=== PATIENT | female | born 1960 | race Caucasian/White ===

== ENCOUNTER → 2017-08-16 15:42 | Outpatient (CLI) | payer BC, SELFPAY ==
--- NOTE | 2017-08-16 15:45 | DI.RAD.S_ITS ---
PROCEDURE: XR CHEST 2V INDICATIONS: sinusitis with chest congestion TECHNIQUE: 2 views of the chest were acquired. COMPARISON: None. FINDINGS: Surgical changes and devices: None. Lungs and pleura: No pleural effusions or pneumothorax. Lungs are clear. Mediastinum: Mediastinal contours are normal. Heart size is normal. Bones and chest wall: No suspicious bony abnormalities. Soft tissues appear unremarkable. IMPRESSION: Large lung volumes, COPD is suspected. No pneumonia found. Dictated by: Dickson Vinson M.D. on 08/16/2017 at 16:11 Approved by: Dickson Vinson M.D. on 08/16/2017 at 16:12
== END ==
PROVIDERS: Visit Provider Nurse Practitioner Family
DX: J32.9 Chronic sinusitis, unspecified (principal)
CPT/HCPCS: 71046

== ENCOUNTER → 2017-09-26 12:17 | Outpatient (CLI) | payer BC, SELFPAY ==
--- NOTE | 2017-09-26 | DI.MG.S_ITS ---
BILATERAL DIGITAL SCREENING MAMMOGRAM 3D/2D WITH CAD: 09/26/2017 CLINICAL: Routine screening. Comparison is made to exams dated: 08/18/2016 mammogram - [facility], 06/20/2014 mammogram, and 12/23/2008 mammogram - [facility]. The tissue of both breasts is heterogeneously dense. This may lower the sensitivity of mammography. Current study was also evaluated with a Computer Aided Detection (CAD) system. No significant masses, calcifications, or other findings are seen in either breast. There has been no significant interval change. IMPRESSION: NEGATIVE There is no mammographic evidence of malignancy. A 1 year screening mammogram is recommended. This exam was interpreted at Station ID: [id number]. NOTE: For mammograms, a report in lay terms will be sent to the patient. Approximately 15% of breast malignancies will not be visualized mammographically. In the management of a palpable breast mass, a negative mammogram must not discourage biopsy of a clinically suspicious lesion. Electronically Signed By: Rivera chin/lilia:09/26/2017 16:00:33 letter sent: Normal Exam ACR BI-RADS Category 1: Negative [id number]
== END ==
PROVIDERS: Family Provider Nurse Practitioner; PCP Nurse Practitioner; Visit Provider Physician Assistant
DX: Z12.31 Encounter for screening mammogram for malignant neoplasm of breast (principal)
CPT/HCPCS: 77063; 77067

== ENCOUNTER → 2018-03-27 17:00 | Outpatient (CLI) | payer BC, SELFPAY ==
--- NOTE | 2018-03-27 17:03 | DI.RAD.S_ITS ---
PROCEDURE: XR KNEE RT 1TO2V INDICATIONS: right knee injury TECHNIQUE: 2 views of the knee were acquired. COMPARISON: None. FINDINGS: Bones: There is appearance of irregular contour and depression of the lateral tibial plateau as well as what appears to be a overlapped fracture fragment. Portion of this is obscured by overlapping fibular head. There is ill-defined lucency overlying the tibial spine seen on the frontal view. Soft tissues: Joint effusion with hematoma is present. No suspicious soft tissue calcifications. IMPRESSION: 1. Joint effusion with hematoma. In addition, there is an appearance of depression of the lateral tibial plateau with partially obscured fragment. Overall appearance is most suggestive of lateral tibial plateau fracture. Fibular head fracture cannot be definitively excluded. 2. Lucency noted overlying the tibial spine suggestive of nondisplaced fracture. Dictated by: Dina Cooley M.D. on 03/27/2018 at 17:55 Approved by: Dina Cooley M.D. on 03/27/2018 at 18:01
== END ==
PROVIDERS: PCP Family Medicine; Visit Provider Physician Assistant
DX: S80.01XA Contusion of right knee, initial encounter (principal); M25.561 Pain in right knee; M25.461 Effusion, right knee
CPT/HCPCS: 73560

== ENCOUNTER → 2018-03-28 14:17 | Outpatient (CLI) | payer BC, SELFPAY ==
--- NOTE | 2018-03-28 14:23 | DI.CT.S_ITS ---
PROCEDURE: CT LE RT WO CON INDICATIONS: lateral tibial plateau fracture TECHNIQUE: Noncontrast 1-1.5 mm axial sections acquired from the mid-patella to the proximal tibia, with coronal and sagittal reformats. COMPARISON: None. FINDINGS: Image quality: Diagnostic. Bones: There is a mildly impacted intra-articular fracture identified involving the lateral tibial plateau with offset of the articular surface by up to approximately 5 mm. Subchondral sclerosis related to impaction of the fracture fragments is identified. No displaced fracture fragments are evident. This fracture does not extend into the tibial spines or the medial malleolus. No fractures involving the proximal fibula, distal femur, or patella are evident. Mild to moderate degenerative changes of the knee are present. There is a prominent lipohemarthrosis evident. A large intra-articular calcified or joint body is identified along the posterior margin of the knee, which measures up to approximately 1.3 x 0.8 x 1.2 cm (image 95, series 6 image 114, series 4). Soft tissues: Soft tissue edema about the knee is identified, particularly overlying the lateral aspect of the knee. No soft tissue masses or drainable fluid collections are evident. No significant atrophy involving the imaged muscles about the knee are present. Please note that the cartilaginous, ligamentous, tendinous structures of the knee are not adequately evaluated on CT. IMPRESSION: 1. Mildly comminuted fracture involving the lateral malleolus with associated depression (Schatzker 3A). 2. Mild to moderate degenerative changes of the right knee. 3. Large lipohemarthrosis containing a chronic appearing peripherally calcified intra-articular joint body. Dictated by: Barrett Villela M.D. on 03/28/2018 at 14:03 Approved by: Barrett Villela M.D. on 03/28/2018 at 14:12
== END ==
PROVIDERS: PCP Family Medicine; Visit Provider Physician Assistant
DX: S82.141A Displaced bicondylar fracture of right tibia, initial encounter for closed fracture (principal)
CPT/HCPCS: 73700

== ENCOUNTER → 2018-05-25 14:59 | Outpatient (CLI) | payer BC, SELFPAY ==
--- NOTE | 2018-05-25 | DI.US.S_ITS ---
PROCEDURE: US PERIPH VENOUS LOW EXTREM RT INDICATIONS: RIGHT LOWER EXTREMITY SWELLING TECHNIQUE: Real-time imaging, as well as color and pulse Doppler interrogation, were performed of the lower extremity deep veins from the inguinal ligament to the popliteal fossa. COMPARISON: None. FINDINGS: The deep veins are normally compressible, and free of intraluminal thrombus. Color and pulse Doppler demonstrate normal phasic intraluminal flow. There is normal augmentation response to distal compression maneuver. IMPRESSION: No visualized deep venous thrombosis. Dictated by: Dina Cooley M.D. on 05/25/2018 at 16:20 Approved by: Dina Cooley M.D. on 05/25/2018 at 16:21
== END ==
PROVIDERS: PCP Family Medicine; Visit Provider Orthopaedic Surgery
DX: R22.41 Localized swelling, mass and lump, right lower limb (principal)
CPT/HCPCS: 93971

== ENCOUNTER 2018-06-25 13:24 | Emergency (ER) | payer BC, SELFPAY ==
[2018-06-25 13:30] VITALS: BP 119/72; PULSE 77; RESP 18; TEMP 36.6; O2SAT 99
--- NOTE | 2018-06-25 13:52 | PC.NURSE ---
reports 10 weeks post right knee surgery, pt states, it has been discolored (from the knee down) since, had u/s 5 weeks ago, pt was on lovenox , dc due to gi bleed. now pt with bruising right foot by the arch. full rom , +distal cms intact. arrived right lower leg discoloration noted (red, non blanching) cool to touch. denies cp.sob.
--- NOTE | 2018-06-25 13:55 | DI.US.S_ITS ---
PROCEDURE: US PERIP VENOUS LOW EXTREM RT INDICATIONS: SWELLING ON BOTTOM OF FOOT, 10 WEEKS POST OPERATIVE TECHNIQUE: Real-time imaging, as well as color and pulse Doppler interrogation, were performed of the lower extremity deep veins from the inguinal ligament to the popliteal fossa. COMPARISON: [facility], US, US [facility] VENOUS LOW EXTREM RT, 05/25/2018, 15:35. FINDINGS: The common femoral, femoral and popliteal veins are normally compressible, and free of intraluminal thrombus. Color and pulse Doppler demonstrate intraluminal flow. There is normal augmentation response to distal compression maneuver. There are multiple hypodense foci within the plantar surface of the right foot, with the largest measuring 1.2 x 0.3 x 0.5 cm in the subcutaneous soft tissues on the plantar surface of the right foot at the area of the patient's indicated concern/palpable abnormality, with symmetrical vascularity on Doppler ultrasound. IMPRESSION: 1. No ultrasound evidence of deep venous thrombosis of the right lower extremity. 2. Multiple hypoattenuating foci within the plantar subcutaneous tissues of the right foot measuring up to 1.2 cm in size may represent small fluid collections/hematomas, cysts, or masses; an abscess is thought unlikely given lack of surrounding vascularity on Doppler ultrasound. Dictated by: Matteo Shipley M.D. on 06/25/2018 at 16:55 Approved by: Matteo Shipley M.D. on 06/25/2018 at 16:59
--- NOTE | 2018-06-25 14:06 | ED_ITS ---
HPI - Extremity Problem <NOLAN Traylor - Last Filed: 06/25/18 20:48> General Chief complaint: Extremity Problem,Nontraumatic Stated complaint: Lump on bottom of rt foot Time Seen by Provider: 06/25/18 13:42 Source: patient and family Mode of arrival: ambulatory Limitations: no limitations History of Present Illness HPI Narrative: The patient is a 58-year-old female who presents with a chief complaint of right lower leg and foot pain. she had a right tibial plateau fracture and subsequent ORIF on 04/14/2018. She presents with a chief complaint of right lower leg discoloration, pain and bumps on the bottom of her right foot. She states that her lower leg have been discolored since surgery, but she feels as though it is worsening. She was on Lovenox for 3 weeks after surgery, but then had a ?small GI bleed so she was taken off any blood thinners. She is worried about a blood clot in her right lower leg. She had a ultrasound done 4 weeks ago for DVT, which was negative. she did have follow-up with Orthopedics at [facility] on , and was seen by the ?head surgeon who ?had no idea why my leg is discolored. She states she had normal x-rays at that time. She does present requesting an MRI of her leg. Related Data Previous Rx's Medication Instructions Recorded alprazolam 0.25 mg tablet See Rx Instructions PO ONCE PRN #4 11/01/17 tab wheelchair #1 each 03/27/18 Allergies Allergy/AdvReac Type Severity Reaction Status Date / Time latex [LATEX] Allergy Unknown Verified 06/26/18 15:27 Penicillins [PENICILLINS] Allergy Unknown Verified 06/26/18 15:27 Tetracyclines [TETRACYCLINES] Allergy Unknown Verified 06/26/18 15:27 erythromycin base AdvReac Mild Verified 06/26/18 15:27 Review of Systems <NOLAN Traylor - Last Filed: 06/25/18 20:48> Review of Systems GENERAL: Denies chills, fatigue, malaise, fever, sweats. HEENT: Denies sinus pain, ear pain, sore throat, difficulty swallowing, dizziness. RESPIRATORY: Denies dyspnea, cough, wheezing, hemoptysis, sputum. CARDIOVASCULAR: Denies chest pain, palpitations, orthopnea, edema, GASTROINTESTINAL: Denies nausea, vomiting, abdominal pain, diarrhea, constipation, melena. : Denies dysuria, frequency, incontinence, hematuria, urinary retention. MUSCULOSKELETAL: See HPI SKIN: See HPI NEUROLOGIC: Denies weakness, headache, numbness, change in speech, confusion, seizures, incoordination. PSYCHIATRIC: No concerning psychosocial issues. 12 point review of systems is negative except for those stated above PFSH <NOLAN Traylor - Last Filed: 06/25/18 20:48> Medical History (Updated 06/25/18 @ 16:47 by NOLAN Traylor) Anxiety (Chronic) Gastrointestinal complaints (Chronic) IBS (irritable bowel syndrome) (Chronic) Shoulder pain (Chronic) Chicken pox (Resolved 1965) Measles (Resolved 1964) Surgical History (Updated 09/26/17 @ 14:12 by Kasey Abbott) Anesthesia (Resolved) History of tonsillectomy (Resolved) Status post dilation and curettage (Resolved 2012) Status post laparoscopy (Resolved 1987) Family History (Updated 09/26/17 @ 14:15 by Kasey Abbott) Father CAD (coronary artery disease) S/P CABG x 5 NH (myocardial infarction) Kidney failure Grandfather CAD (coronary artery disease) NH (myocardial infarction) Grandmother Dementia Mother Age: 86 A-fib Pacemaker Sister Age: 53 Lymphoma Social History Smoking Status: Never smoker Family History (Updated 09/26/17 @ 14:15 by Kasey Abbott) Father CAD (coronary artery disease) S/P CABG x 5 NH (myocardial infarction) Kidney failure Grandfather CAD (coronary artery disease) NH (myocardial infarction) Grandmother Dementia Mother Age: 86 A-fib Pacemaker Sister Age: 53 Lymphoma Social History Smoking Status: Never smoker Exam <NOLAN Traylor - Last Filed: 06/25/18 20:48> Narrative Exam Narrative: GENERAL: This is a well-nourished, well-developed patient, in no acute distress with at bedside HEAD: Atraumatic. Normocephalic. No temporal or scalp tenderness. EYES: Pupils equal round and reactive. Extraocular motions intact. No scleral icterus. No injection or drainage. ENT: Nose without bleeding, purulent drainage or septal hematoma. Throat without erythema, tonsillar hypertrophy or exudate. Uvula midline. Airway patent. NECK: Trachea midline. No JVD or lymphadenopathy. Supple, nontender, no meningeal signs. CARDIOVASCULAR: Regular rate and rhythm without murmurs, gallops, or rubs. RESPIRATORY: Clear to auscultation. Breath sounds equal bilaterally. No wheezes, rales, or rhonchi. No cough. No increased respiratory effort. GASTROINTESTINAL: Abdomen soft, non-tender, nondistended. No hepato- splenomegaly, or palpable masses. No guarding. EXTREMITIES: General pain to palpation left lower leg. Calf is soft to palpation. Positive pedal pulses. no significant edema noted. BACK: Nontender without deformity or crepitance. No flank tenderness. NEURO: AOx3. SKIN: Diffuse skin darkening distal aspect right lower leg. Well-healing knee surgical incision on the right side. No obvious erythema. Two areas of ecchymosis noted on the distal aspect of right foot. Skin is intact. pain to palpation noted. Initial Vital Signs Initial Vital Signs: Vital Signs Temperature 97.8 F 06/25/18 13:30 Pulse Rate 77 06/25/18 13:30 Respiratory Rate 18 06/25/18 13:30 Blood Pressure 119/72 06/25/18 13:30 Pulse Oximetry 99 06/25/18 13:30 <Sterling Merchant DO - Last Filed: 06/27/18 04:50> Initial Vital Signs Initial Vital Signs: Vital Signs Temperature 97.8 F 06/25/18 13:30 Pulse Rate 77 06/25/18 13:30 Respiratory Rate 18 06/25/18 13:30 Blood Pressure 119/72 06/25/18 13:30 Pulse Oximetry 99 06/25/18 13:30 Course <NOLAN Traylor - Last Filed: 06/25/18 20:48> Orders Ordered: ED Orders 06/25/18 13:55 perip venous low extrem rt Stat Vital Signs - 8 hr 06/25/18 13:30 06/25/18 17:13 Temperature 97.8 F Pulse Rate 77 62 Respiratory Rate 18 16 Blood Pressure 119/72 107/77 Pulse Oximetry 99 99 <DO Bernice Collins Last Filed: 06/27/18 04:50> Orders Ordered: ED Orders 06/25/18 13:55 US perip venous low extrem rt Stat Vital Signs - 8 hr 06/25/18 13:30 06/25/18 17:13 Temperature 97.8 F Pulse Rate 77 62 Respiratory Rate 18 16 Blood Pressure 119/72 107/77 Pulse Oximetry 99 99 MDM - Extremity (Nontraumatic) <NOLAN Traylor - Last Filed: 06/25/18 20:48> Imaging Data Venous US: Attestation: I personally reviewed and interpreted this imaging study as follows: Radiologist's impression: [address] [address] Ultrasound Report Signed Patient: Araceli Epstein RMR#: [id number] : 9Acct:[id number] Age/Sex: 58 / FDate of Service: 06/25/18 Loc: Accession Number: [id number] Procedure: US periph venous low extrem rt Ordering Provider: Leatha Jang PROCEDURE: US PERIPH VENOUS LOW EXTREM RT INDICATIONS: SWELLING ON BOTTOM OF FOOT, 10 WEEKS POST OPERATIVE TECHNIQUE: Real-time imaging, as well as color and pulse Doppler interrogation, were performed of the lower extremity deep veins from the inguinal ligament to the popliteal fossa. COMPARISON: [facility], PERIP VENOUS LOW EXTREM RT, 05/25/2018, 15:35. FINDINGS: The common femoral, femoral and popliteal veins are normally compressible, and free of intraluminal thrombus. Color and pulse Doppler demonstrate intraluminal flow. There is normal augmentation response to distal compression maneuver. There are multiple hypodense foci within the plantar surface of the right foot, with the largest measuring 1.2 x 0.3 x 0.5 cm in the subcutaneous soft tissues on the plantar surface of the right foot at the area of the patient's indicated concern/palpable abnormality, with symmetrical vascularity on Doppler ultrasound. IMPRESSION: 1. No ultrasound evidence of deep venous thrombosis of the right lower extremity. 2. Multiple hypoattenuating foci within the plantar subcutaneous tissues of the right foot measuring up to 1.2 cm in size may represent small fluid collections/hematomas, cysts, or masses; an abscess is thought unlikely given lack of surrounding vascularity on Doppler ultrasound. Dictated by: Matteo Shipley M.D. on 06/25/2018 at 16:55 Approved by: Matteo Shipley M.D. on 06/25/2018 at 16:59 [facility] Narrative Medical decision making narrative: The patient is a 58-year-old female who presents with concern of DVT. She is 10 weeks postoperative of an ORIF of a right tibial plateau fracture done at [facility] orthopedics. She had a negative DVT ultrasound done 4 weeks ago. She states that she was taken off of her DVT prophylaxis due to ?a small GI bleed. She is also concerned about skin changes that have occurred since her surgery 10 weeks ago. She was hemodynamically stable, had positive pedal pulses on exam. She is neurovascularly intact on exam. However given her lack of DVT prophylaxis at this point time, I have elected to obtain an ultrasound to rule out DVT. The p atient elected to leave prior to ultrasound results given the wait for Radiology read, but her report came back with no significant findings. I did discuss with her that she had to follow up with her primary care provider as well as with her [facility] orthopedist. Return precautions given including chest pain, shortness of breath or acute concerns. Discharge Plan Departure Patient Disposition: Home Clinical Impression: Pain in right lower leg Discharge Date/Time: 06/25/18 17:13 Interventions: ED Discharge Assessment Last Done: 06/25/18 17:13 Instructions: How To Perform RICE (Rest, Ice, Compress, Elevate), DI for Leg Pain Activity Restrictions/Additional Instructions: I am sorry that it took so long to get ultrasound results today. I will give you a phone call if anything is abnormal on your ultrasound of your lower leg. The it telecom technician did not see any clots and thought there was bruising on the bottom of her foot. However I do not have the radiologist read at this point in time, so you are taking her risk by leaving without the read. Please follow up with her primary care provider as well as orthopedic surgeon at [facility]. In the meantime please use rest ice compression elevation. Come back to the emergency department if you have any acute concerns such as chest pain or shortness of breath. Prescriptions: No Action wheelchair device .ROUTE .MEDSUPPLY Qty: 1 RF: 0 alprazolam 0.25 mg tablet See Rx Instructions PO ONCE PRN (Reason: anxiety) Qty: 4 RF: 0 Referrals: Areli Acosta MD [Primary Care Provider] - <Sterling [place], DO - Last Filed: 06/27/18 04:50> Cosign ED Attending Nael Attestation: I was immediately available in the department for consultation. Documentation has been reviewed. I agree with assessment and plan.
--- NOTE | 2018-06-25 14:33 | PC.NURSE ---
pt reports just seen Orthopedic 2 days ago, here today, concern for redness spreading upward to her knees, usually here lower leg discoloration, gets improvement after elevation, this time its not getting better, also noted some bruinsing on her foot.
[2018-06-25 17:13] VITALS: BP 107/77; PULSE 62; RESP 16; O2SAT 99
== END 2018-06-25 17:13 | disposition home or self-care (01) ==
PROVIDERS: Emergency Provider Nurse Practitioner Family; PCP Family Medicine
DX: M79.661 Pain in right lower leg (principal); M79.671 Pain in right foot
CPT/HCPCS: 93971; 99283

== ENCOUNTER 2018-06-28 10:45 | Emergency (ER) | payer BC, SELFPAY ==
[2018-06-28 10:57] VITALS: BP 116/70; PULSE 74; RESP 18; TEMP 36.7; O2SAT 99
--- NOTE | 2018-06-28 11:25 | ED_ITS ---
HPI - Extremity Injury (Lower) General Chief Complaint: Extremity Injury, Lower Stated Complaint: circulatory problems following surgery 11 wks ago Time Seen by Provider: 06/28/18 11:12 Source: patient Mode of arrival: wheelchair Limitations: no limitations History of Present Illness HPI Narrative: Patient is a 58-year-old female who 11 weeks ago underwent a tibial plateau fracture at [facility]. Was seen here in the emergency department in the past secondary to redness in the right lower extremity. Had a DVT ultrasound which was unremarkable. Patient was seen by her primary provider yesterday for continued concerns of redness and coolness to the right lower extremity. It appears according to that note a arterial ultrasound was ordered to evaluate for a arterial issue however this was ordered as an outpatient. The patient arrives today because she states she received a call from the primary provider told her to come to the emergency department. She states that she is having coolness to her right lower extremity. Has redness to right lower extremity with this is not new. Has a bump on the bottom of her right foot. Has just recently started weight-bearing per the instructions of her orthopedic surgeon. Did not receive physical therapy today because physical therapist was concerned about the look of her lower extremity. Related Data Previous Rx's Medication Instructions Recorded alprazolam 0.25 mg tablet See Rx Instructions PO ONCE PRN #4 11/01/17 tab wheelchair #1 each 03/27/18 Allergies Allergy/AdvReac Type Severity Reaction Status Date / Time latex [LATEX] Allergy Unknown Verified 06/26/18 15:27 Penicillins [PENICILLINS] Allergy Unknown Verified 06/26/18 15:27 Tetracyclines [TETRACYCLINES] Allergy Unknown Verified 06/26/18 15:27 erythromycin base AdvReac Mild Verified 06/26/18 15:27 Review of Systems Constitutional Denies headache(s) ENT Ears, Nose, Mouth, and Throat: Denies headache(s) Cardiovascular Denies chest pain and Denies dyspnea Respiratory Denies dyspnea Gastrointestinal Gastrointestinal: Denies abdominal pain, Denies nausea and Denies vomiting Musculoskeletal Comments: Tingling right lower extremity Integumentary/Breasts Comments: Redness right lower extremity Neurologic Denies headache(s) Hematologic/Lymphatic Denies easy bleeding and Denies easy bruising Allergic/Immunologic Denies urticaria [facility] Medical History Anxiety (Chronic) Gastrointestinal complaints (Chronic) IBS (irritable bowel syndrome) (Chronic) Shoulder pain (Chronic) Chicken pox (Resolved 1965) Measles (Resolved 1964) Surgical History (Updated 09/26/17 @ 14:12 by Kasey Abbott) Anesthesia (Resolved) History of tonsillectomy (Resolved) Status post dilation and curettage (Resolved 2012) Status post laparoscopy (Resolved 1987) Family History (Updated 09/26/17 @ 14:15 by Kasey Abbott) Father CAD (coronary artery disease) S/P CABG x 5 [place] (myocardial infarction) Kidney failure Grandfather CAD (coronary artery disease) GA (myocardial infarction) Grandmother Dementia Mother Age: 86 A-fib Pacemaker Sister Age: 53 Lymphoma Social History Smoking Status: Never smoker Family History (Updated 09/26/17 @ 14:15 by Kasey Abbott) Father CAD (coronary artery disease) S/P CABG x 5 [place] (myocardial infarction) Kidney failure Grandfather CAD (coronary artery disease) GA (myocardial infarction) Grandmother Dementia Mother Age: 86 A-fib Pacemaker Sister Age: 53 Lymph[place] Social History Smoking Status: Never smoker Exam Initial Vital Signs Initial Vital Signs: Vital Signs Temperature 98.0 F 06/28/18 10:57 Pulse Rate 74 06/28/18 10:57 Respiratory Rate 18 06/28/18 10:57 Blood Pressure 116/70 06/28/18 10:57 Pulse Oximetry 99 06/28/18 10:57 Const General: cooperative, healthy appearing, comfortable, well developed, well groomed and No acute distress Orientation: alert, awake and oriented x3 Resp Effort & Inspection: normal respiratory effort Auscultation: clear to auscultation bilaterally Cardio Rate: regular rate Rhythm: regular rhythm Pulses: dorsalis pedis present (DP pulse present on the right however faint) on the right Skin Other: Nonblanching redness from mid tibia down to the ankle right lower extremity located mostly in the anterior area. No vesicles. Neuro Cognition: normal cognition Sensory Exam: other (Some tingling to the right lower extremity which is not new) Extrem Other: Well-healing scars to the right knee full range of motion of the right knee and right ankle. Psych Appearance: grossly normal and well kempt Course Orders Ordered: ED Orders 06/28/18 11:55 Basic Metabolic Panel Stat Complete Blood Count AUTO DIFF Stat 06/28/18 12:34 CT angio abd aorta runoff Stat Discontinued Medications Sodium Chloride (Normal Saline 0.9%) 1,000 mls @ 1,000 mls/hr IV BOLUS ONE Stop: 06/28/18 12:38 Last Infusion: 06/28/18 14:00 Dose: 0 mls/hr Admin: 06/28/18 12:40 Dose: 1,000 mls/hr Vital Signs - 8 hr 06/28/18 10:57 06/28/18 14:01 Temperature 98.0 F Pulse Rate 74 63 Respiratory Rate 18 Blood Pressure 116/70 102/65 Pulse Oximetry 99 100 MDM - Extremity Injury (Lower) Lab Data Attestation: I reviewed the patient's lab results. Result diagrams: 06/28/18 11:55 06/28/18 11:55 Lab Results 06/28/18 06/28/18 Range/Units 11:55 11:55 WBC 5.4 (4.5-11.0) X10^3/uL RBC 4.59 (4.0-5.2) X10^6/uL Hgb 13.9 (12.0-16.0) g/dL Hct 41.4 (36-46) % MCV 90.4 (80-100) fL MCH 30.3 (26-34) PG MCHC 33.6 (30-36) % RDW 12.6 (11.6-14.8) % Plt Count 378 (150-400) X10^3/uL Neut % (Auto) 50.3 (50-75) % Lymph % (Auto) 39.3 (25-40) % [place] % (Auto) 8.2 (3-14) % Eos % (Auto) 1.2 L (2-4) % Baso % (Auto) 1.0 (0-2) % Neut # (Auto) 2700 (2438-5152) /uL Lymph # (Auto) 2100 (6656-9249) /uL [place] # (Auto) 400 (0-900) /uL Eos # (Auto) 100 (0-450) /uL Baso # (Auto) 100 (0-100) /uL Sodium 139 (137-145) mmol/L Potassium 3.8 (3.4-5.1) mmol/L Chloride 99 (98-107) mmol/L Carbon Dioxide 29 (22-32) mmol/L BUN 13 (7-17) mg/dL Creatinine 0.60 (0.52-1.04) mg/dL Estimated GFR > 60.0 (>60) mL/min BUN/Creatinine Ratio 21.7 (6-22) Glucose 96 (70-100) mg/dL Calcium 9.5 (8.4-10.2) mg/dL Imaging Data CT angio: Radiologist's impression: [address] [address] [address] Scan Report Signed Patient: Araceli Epstein RMR#: [id number] : 9Acct:[id number] Age/Sex: 58 / FDate of Service: 06/28/18 Loc: ED Accession Number: [id number] Procedure: CT angio abd aorta runoff Ordering Provider: Mynor Flores D.O. PROCEDURE: CT ANGIO ABD AORTA RUNOFF INDICATIONS: Right lower extremity redness and coolness after surgery TECHNIQUE: After the administration of intravenous contrast, 2.5 mm sections acquired from T12 to the feet, with optional delayed image acquisition from the knees to the feet. 3-dimensional maximum intensity projection (MIP) coronal and sagittal reformats, and/or 3-dimensional volume rendering reformatting was then performed. For radiation dose reduction, the following was used: automated exposure control. COMPARISON: None. FINDINGS: Image quality: Excellent. Extravascular tissues: Lung bases are clear. Heart size is normal. Liver is normal in size and enhancement. Gallbladder normal. Biliary system is non dilated. Pancreas enhances normally. Spleen is normal in size and enhancement. No adrenal nodules. Kidneys are normal in size and enhancement, without hydronephrosis. Non opacified bowel loops demonstrate normal wall thickness and enhancement. No free fluid or air. No retroperitoneal or mesenteric adenopathy. No ventral hernias. Bladder wall thickness is normal. No inguinal hernias or adenopathy. No suspicious bony lesions. No vertebral body compression fractures. Abdominal aorta: Normal Right lower extremity: Normal vascular flow, metal artifact from tibial plateau fracture fixation on the right. Left lower extremity: Normal IMPRESSION: Normal. Dictated by: Dickson Vinson M.D. on 06/28/2018 at 13:04 [facility] Narrative Medical decision making narrative: The redness in her right lower extremity is not new. Her right lower extremity is cool compared to the left however the CT angio of her right lower extremity shows no arterial deficiencies. She has had a DVT ultrasound in the past which was negative. Her exam is not consistent with a DVT. Informed her that her symptoms could potentially be the result of neurologic changes after the surgery verses complex regional pain syndrome. Informed her that she had no restrictions on physical therapy except those which were given by her orthopedic surgeon. Informed her to call her orthopedic surgeon for follow-up. Patient expressed understanding and agreement with plan. Discharge Plan Departure Patient Disposition: Home Clinical Impression: Post-operative complication Qualifiers: Surgical complication system/body Area: [id number] Encounter type: initial encounter Discharge Date/Time: 06/28/18 14:02 Interventions: ED Discharge Assessment Last Done: 06/28/18 14:01 Activity Restrictions/Additional Instructions: The CT scan today showed no vascular issues in her right lower extremity. You are free to continue with any instructions that her orthopedic provider gives you with regard to recovery of your knee injury. contact her orthopedic provider for follow-up. Return to the emergency department for any new or worsening symptoms Prescriptions: No Action wheelchair device .ROUTE .MEDSUPPLY Qty: 1 RF: 0 alprazolam 0.25 mg tablet See Rx Instructions PO ONCE PRN (Reason: anxiety) Qty: 4 RF: 0 Referrals: Ginette Swift ARNP [Primary Care Provider] -
[2018-06-28 12:04] LABS: Add Manual Diff / Slide Review NO; Basophils Absolute Auto 100 /uL (0-100); Eosinophils Absolute Auto 100 /uL (0-450); Eosinophils Percent Auto 1.2 % (2-4); Hematocrit 41.4 % (36-46); Hemoglobin 13.9 g/dL (12.0-16.0); Lymphocytes Absolute Auto 2100 /uL (1100-4500); Lymphocytes Percent Auto 39.3 % (25-40); Mean Corpuscular HGB Conc 33.6 % (30-36); Mean Corpuscular Hemoglobin 30.3 PG (26-34); Mean Corpuscular Volume 90.4 fL (80-100); Monocytes Absolute Auto 400 /uL (0-900); Monocytes Percent Auto 8.2 % (3-14); Neutrophils Absolute Auto 2700 /uL (1500-7000); Neutrophils Percent Auto 50.3 % (50-75); Platelet Count 378 X10^3/uL (150-400); Red Blood Cell Count 4.59 X10^6/uL (4.0-5.2); Red Cell Distribution Width 12.6 % (11.6-14.8); White Blood Cell Count 5.4 X10^3/uL (4.5-11.0)
[2018-06-28 12:14] LABS: BUN Creatinine Ratio 21.7 (6-22); Blood Urea Nitrogen 13 mg/dL (7-17); Calcium 9.5 mg/dL (8.4-10.2); Carbon Dioxide 29 mmol/L (22-32); Chloride 99 mmol/L (98-107); Estimated Glomerular Filt Rate > 60.0 mL/min (>60); Glucose 96 mg/dL (70-100); HEMOLYSIS < 15 (0-50); Potassium 3.8 mmol/L (3.4-5.1); Sodium 139 mmol/L (137-145)
--- NOTE | 2018-06-28 12:14 | PC.NURSE ---
Able to get pedal pulse with doppler. pulse is heard but fades and then comes back.
--- NOTE | 2018-06-28 12:34 | DI.CT.S_ITS ---
PROCEDURE: CT ANGIO ABD AORTA RUNOFF INDICATIONS: Right lower extremity redness and coolness after surgery TECHNIQUE: After the administration of intravenous contrast, 2.5 mm sections acquired from T12 to the feet, with optional delayed image acquisition from the knees to the feet. 3-dimensional maximum intensity projection (MIP) coronal and sagittal reformats, and/or 3-dimensional volume rendering reformatting was then performed. For radiation dose reduction, the following was used: automated exposure control. COMPARISON: None. FINDINGS: Image quality: Excellent. Extravascular tissues: Lung bases are clear. Heart size is normal. Liver is normal in size and enhancement. Gallbladder normal. Biliary system is non dilated. Pancreas enhances normally. Spleen is normal in size and enhancement. No adrenal nodules. Kidneys are normal in size and enhancement, without hydronephrosis. Non opacified bowel loops demonstrate normal wall thickness and enhancement. No free fluid or air. No retroperitoneal or mesenteric adenopathy. No ventral hernias. Bladder wall thickness is normal. No inguinal hernias or adenopathy. No suspicious bony lesions. No vertebral body compression fractures. Abdominal aorta: Normal Right lower extremity: Normal vascular flow, metal artifact from tibial plateau fracture fixation on the right. Left lower extremity: Normal IMPRESSION: Normal. Dictated by: Dickson Vinson M.D. on 06/28/2018 at 13:04 Approved by: Dickson Vinson M.D. on 06/28/2018 at 13:06
[2018-06-28] MEDS: SODIUM CHLORIDE 0.9% 1,000 ML 1000 ML IV (12:40)
[2018-06-28 14:01] VITALS: BP 102/65; PULSE 63; O2SAT 100
== END 2018-06-28 14:02 | disposition home or self-care (01) ==
PROVIDERS: Emergency Provider Emergency Medicine; PCP Registered Nurse
DX: T81.9XXA Unspecified complication of procedure, initial encounter (principal)
CPT/HCPCS: 36591; 75635; 80048; 85025; 96360; 99283; 99284; Q9967

== ENCOUNTER → 2018-09-20 11:57 | Outpatient (CLI) | payer BC, SELFPAY ==
[2018-09-20 13:56] LABS: TSH w/ Reflex to FT4 1.61 uIU/mL (0.47-4.68)
[2018-09-20 14:15] LABS: Vitamin B12 203 pg/mL (239-931)
== END ==
PROVIDERS: PCP Family Medicine; Visit Provider Registered Nurse
DX: R41.89 Other symptoms and signs involving cognitive functions and awareness (principal)
CPT/HCPCS: 36415; 82607; 84443

== ENCOUNTER → 2018-11-27 11:40 | Outpatient (CLI) | payer BC, SELFPAY ==
--- NOTE | 2018-11-27 | DI.MG.S_ITS ---
BILATERAL DIGITAL SCREENING MAMMOGRAM 3D/2D WITH CAD: 11/27/2018 Comparison is made to exams dated: 09/26/2017 mammogram, 08/18/2016 mammogram - [facility], 06/20/2014 mammogram, 12/23/2008 mammogram, and 09/18/2007 mammogram - [facility]. The tissue of both breasts is heterogeneously dense. This may lower the sensitivity of mammography. Current study was also evaluated with a Computer Aided Detection (CAD) system. No significant masses, calcifications, or other findings are seen in either breast. There has been no significant interval change. IMPRESSION: NEGATIVE There is no mammographic evidence of malignancy. A 1 year screening mammogram is recommended. This exam was interpreted at Station ID: [id number]. NOTE: For mammograms, a report in lay terms will be sent to the patient. Approximately 15% of breast malignancies will not be visualized mammographically. In the management of a palpable breast mass, a negative mammogram must not discourage biopsy of a clinically suspicious lesion. Electronically Signed By: Markell aguilera/lilia:11/27/2018 12:48:14 letter sent: Normal Exam ACR BI-RADS Category 1: Negative 3341F
== END ==
PROVIDERS: PCP Registered Nurse; Visit Provider Registered Nurse
DX: Z12.31 Encounter for screening mammogram for malignant neoplasm of breast (principal)
CPT/HCPCS: 77063; 77067

== ENCOUNTER → 2020-02-22 12:16 | Outpatient (CLI) | payer BC, SELFPAY | PROVIDERS: PCP Family Medicine; Referring Provider Family Medicine; Visit Provider Family Medicine | DX: Z12.31 Encounter for screening mammogram for malignant neoplasm of breast (principal); Z53.9 Procedure and treatment not carried out, unspecified reason; R63.5 Abnormal weight gain; R53.83 Other fatigue; Z72.820 Sleep deprivation ==

== ENCOUNTER → 2020-03-03 15:56 | Outpatient (CLI) | payer BC, SELFPAY ==
--- NOTE | 2020-03-03 16:01 | DI.MG.S_ITS ---
BILATERAL DIGITAL SCREENING MAMMOGRAM 3D/2D WITH CAD: 03/03/2020 CLINICAL: Routine screening. Comparison is made to exams dated: 11/27/2018 mammogram, 08/18/2016 mammogram, and 09/26/2017 mammogram - [facility]. The tissue of both breasts is heterogeneously dense. This may lower the sensitivity of mammography. Current study was also evaluated with a Computer Aided Detection (CAD) system. There is a stable benign focal asymmetry in the left breast. No significant masses, calcifications, or other findings are seen in either breast. There has been no significant interval change. IMPRESSION: BENIGN There is no mammographic evidence of malignancy. A 1 year screening mammogram is recommended. This exam was interpreted at Station ID: [id number]. NOTE: For mammograms, a report in lay terms will be sent to the patient. Approximately 15% of breast malignancies will not be visualized mammographically. In the management of a palpable breast mass, a negative mammogram must not discourage biopsy of a clinically suspicious lesion. Electronically Signed By: Mak Gustafson acr/lilia:03/03/2020 16:37:30 letter sent: Normal Exam ACR BI-RADS Category 2: Benign Finding(s) 3342F
[2020-03-03 16:49] LABS: Add Manual Diff / Slide Review NO; Basophils Absolute Auto 100 /uL (0-100); Basophils Percent Auto 0.9 % (0-2); Eosinophils Absolute Auto 200 /uL (0-450); Eosinophils Percent Auto 3.7 % (2-4); Hematocrit 39.5 % (36-46); Hemoglobin 13.4 g/dL (12.0-16.0); Lymphocytes Absolute Auto 2700 /uL (1100-4500); Lymphocytes Percent Auto 41.1 % (25-40); Mean Corpuscular HGB Conc 33.9 % (30-36); Mean Corpuscular Volume 91.6 fL (80-100); Monocytes Absolute Auto 600 /uL (0-900); Monocytes Percent Auto 8.9 % (3-14); Neutrophils Absolute Auto 3000 /uL (1500-7000); Neutrophils Percent Auto 45.4 % (50-75); Platelet Count 355 X10^3/uL (150-400); Red Blood Cell Count 4.31 X10^6/uL (4.0-5.2); Red Cell Distribution Width 12.7 % (11.6-14.8); White Blood Cell Count 6.5 X10^3/uL (4.5-11.0)
[2020-03-03 17:23] LABS: Alanine Aminotransferase 38 IU/L (<35); Albumin 4.5 g/dL (3.5-5.0); Albumin Globulin Ratio 1.3 (1.0-2.8); Alkaline Phosphatase 67 U/L (38-126); Aspartate Aminotransferase 44 IU/L (14-36); BUN Creatinine Ratio 27.9 (6-22); Bilirubin Total 0.7 mg/dL (0.2-1.3); Blood Urea Nitrogen 17 mg/dL (7-17); Calcium 9.6 mg/dL (8.4-10.2); Carbon Dioxide 33 mmol/L (22-32); Chloride 100 mmol/L (98-107); Estimated Glomerular Filt Rate > 60.0 mL/min (>60); Globulin 3.4 g/dL (1.7-4.1); Glucose 94 mg/dL (80-110); HEMOLYSIS < 15 (0-50); Magnesium 2.4 mg/dL (1.6-2.3); Phosphorous 4.2 mg/dL (2.8-4.1); Potassium 3.6 mmol/L (3.4-5.1); Sodium 137 mmol/L (137-145); Total Protein 7.9 g/dL (6.3-8.2)
[2020-03-03 17:37] LABS: Progesterone, Total 0.88 ng/mL
[2020-03-03 17:41] LABS: Free T3, Triiodothyronine Free 2.48 pg/mL (2.77-5.27)
[2020-03-03 17:55] LABS: Thyroid Stimulating Hormone 1.57 uIU/mL (0.47-4.68)
[2020-03-03 18:11] LABS: Vitamin B12 325 pg/mL (239-931)
== END ==
PROVIDERS: PCP Family Medicine; Referring Provider Nurse Practitioner Family; Visit Provider Family Medicine
DX: Z12.31 Encounter for screening mammogram for malignant neoplasm of breast (principal); R63.5 Abnormal weight gain; R53.83 Other fatigue; Z72.820 Sleep deprivation
CPT/HCPCS: 36415; 77063; 77067; 80053; 82607; 83735; 84100; 84144; 84443; 84481; 85025

== ENCOUNTER → 2020-06-27 13:37 | Outpatient (CLI) | payer BC, SELFPAY ==
[2020-06-27 14:22] LABS: Alanine Aminotransferase 23 IU/L (<35); Albumin 4.6 g/dL (3.5-5.0); Albumin Globulin Ratio 1.4 (1.0-2.8); Alkaline Phosphatase 63 U/L (38-126); Aspartate Aminotransferase 36 IU/L (14-36); BUN Creatinine Ratio 27.7 (6-22); Bilirubin Total 0.8 mg/dL (0.2-1.3); Blood Urea Nitrogen 18 mg/dL (7-17); Carbon Dioxide 31 mmol/L (22-32); Chloride 100 mmol/L (98-107); Estimated Glomerular Filt Rate > 60.0 mL/min (>60); Globulin 3.4 g/dL (1.7-4.1); Glucose 75 mg/dL (80-110); HEMOLYSIS 15 (0-50); Potassium 3.5 mmol/L (3.4-5.1); Sodium 139 mmol/L (137-145)
[2020-06-27 14:38] LABS: Free T4, Direct Thyroxine 0.86 ng/dL (0.78-2.19)
[2020-06-27 14:52] LABS: Thyroid Stimulating Hormone 1.58 uIU/mL (0.47-4.68)
== END ==
PROVIDERS: PCP Family Medicine; Referring Provider Family Medicine; Visit Provider Family Medicine
DX: R74.8 Abnormal levels of other serum enzymes (principal); R79.89 Other specified abnormal findings of blood chemistry
CPT/HCPCS: 36415; 80053; 84439; 84443; 84481

== ENCOUNTER → 2020-07-24 08:23 | Outpatient (CLI) | payer BC, SELFPAY ==
[2020-07-24] MEDS: COVID-19 VACC #1, MRNA(MOD) 100 MCG/0.5 ML VIAL IM (08:37)
== END ==
PROVIDERS: PCP Family Medicine; Visit Provider Internal Medicine
DX: Z23 Encounter for immunization (principal)
CPT/HCPCS: 0011A; 91301

== ENCOUNTER → 2020-08-29 14:15 | Outpatient (CLI) | payer BC, SELFPAY ==
[2020-08-29] MEDS: COVID-19 VACC #2, MRNA(MOD) 100 MCG/0.5 ML VIAL IM (14:26)
== END ==
PROVIDERS: PCP Family Medicine; Visit Provider Internal Medicine
DX: Z23 Encounter for immunization (principal)
CPT/HCPCS: 0012A; 91301